=== PATIENT | female | born 1965 | race Caucasian/White ===

== ENCOUNTER 2024-06-05 09:19 | Inpatient (IN) | payer OTHER ==
[2024-06-05] VITALS (9 sets, daily range): BP systolic 99–131; BP diastolic 51–88; PULSE 53–159; RESP 16–20; TEMP 97.8–98.2; O2SAT 94–100
[~2024-06-05] VITALS: Ht 160 cm; Wt 95.7 kg
[2024-06-05] MEDS ORDERED: PROCAINAMIDE HCL INJ 100 MG/ML 10 ML VIAL ONE (09:42)
[2024-06-05] MEDS ORDERED: PROCAINAMIDE HCL INJ 1,000 MG in DEXTROSE 5% 500ML 500 ML IV STA (09:45)
[2024-06-05 10:05] LABS: BASOPHILS % 0.2 % (0.0-1.0); EOSINOPHILS # (AUTO) 0.2 (0.0-0.4); EOSINOPHILS % 1.3 % (0.0-6.0); HEMOGLOBIN 12.6 g/dL (12.0-16.0); LYMPHOCYTES # (AUTO) 5.3 (1.0-3.2); LYMPHOCYTES % 44.7 % (18.0-39.1); MEAN CORPUSCULAR HEMOGLOBIN 27.6 pg (28-32); MEAN CORPUSCULAR HGB CONC 30.7 g/dL (31-35); MEAN CORPUSCULAR VOLUME 89.7 fL (81-99); MONOCYTES # (AUTO) 0.5 (0.2-0.8); MONOCYTES % 4.4 % (4.4-11.3); NEUTROPHILS # (AUTO) 5.8 (2.1-6.9); NEUTROPHILS % 49.1 % (38.7-80.0); PLATELET COUNT 278 x10e3/uL (140-360); RED BLOOD COUNT 4.57 x10e6/uL (3.6-5.1); RED CELL DISTRIBUTION WIDTH 14.3 % (11.7-14.4); WHITE BLOOD COUNT 11.81 x10e3/uL (4.8-10.8)
[2024-06-05 10:37] LABS: ALBUMIN 3.1 g/dL (3.5-5.0); ALBUMIN/GLOBULIN RATIO 0.9 (0.8-2.0); ANION GAP 16.7 mmol/L (8-16); BILIRUBIN,TOTAL 0.2 mg/dL (0.2-1.2); CALCIUM 9.1 mg/dL (8.4-10.2); CREATININE, SERUM 0.94 mg/dL (0.57-1.11); POTASSIUM 3.7 mmol/L (3.5-5.1); TOTAL PROTEIN 6.6 g/dL (6.5-8.1)
[2024-06-05] MEDS ORDERED: SODIUM CHLORIDE 0.9% 1000ML 1,000 ML IV SCH (11:00)
[2024-06-05] MEDS ORDERED: ONDANSETRON HCL INJ 2MG/ML 2ML 2 MG/ML VIAL IV PRN (12:00)
[2024-06-05] MEDS: PROCAINAMIDE HCL IV STA (13:03)
[2024-06-05] MEDS: DEXTROSE 5% IV STA (13:03)
[2024-06-05] MEDS ORDERED: ACETAMINOPHEN 325 MG TAB PO PRN (14:00)
[2024-06-05] MEDS ORDERED: LIDOCAINE 4% PATCH TP PRN (14:00)
[2024-06-05] MEDS ORDERED: DEXTROSE 50% SYRINGE 50 ML IV PRN (14:00)
[2024-06-05] MEDS ORDERED: POTASSIUM CHLORIDE 20 MEQ TAB CR PO PRN (14:00)
[2024-06-05] MEDS ORDERED: ALBUTEROL/IPRATROPIUM 3 ML NEB NEB PRN (14:00)
[2024-06-05] MEDS ORDERED: HYDRALAZINE HCL 20 MG/ML VIAL IV PRN (14:00)
[2024-06-05] MEDS ORDERED: SIMETHICONE 80 MG CHEW PO PRN (14:00)
[2024-06-05] MEDS ORDERED: DOCUSATE SODIUM 100 MG CAP PO PRN (14:00)
[2024-06-05] MEDS ORDERED: DIPHENHYDRAMINE HCL 25 MG CAP PO PRN (14:00)
[2024-06-05] MEDS ORDERED: BENZONATATE 100 MG CAP PO PRN (14:00)
[2024-06-05] MEDS: POTASSIUM CHLORIDE 20 MEQ TAB CR PO STA (16:01)
[2024-06-05] MEDS ORDERED: METOPROLOL SUCC25 MG PO (16:10)
[2024-06-05] MEDS ORDERED: FLECAINIDE ACE100 MG PO (16:10)
[2024-06-05] MEDS: METOPROLOL SUCCINATE 25 MG TAB XL PO SCH (16:40)
[2024-06-05] MEDS: ENOXAPARIN SOD INJ 40 MG/0.4 ML SYR SC SCH (16:40)
[2024-06-05] MEDS ORDERED: ASPIRIN325 MG PO (16:54)
[2024-06-05] MEDS ORDERED: PRAVASTATIN SOD40 MG PO (16:54)
[2024-06-05] MEDS ORDERED: MELATONIN 5 MG TABLET PO PRN (21:00)
[2024-06-06] VITALS (7 sets, daily range): BP systolic 105–127; BP diastolic 49–94; PULSE 51–57; RESP 15–17; TEMP 97.8–98.1; O2SAT 94–99
[2024-06-06 06:47] LABS: BASOPHILS % 0.1 % (0.0-1.0); EOSINOPHILS # (AUTO) 0.1 (0.0-0.4); EOSINOPHILS % 1.5 % (0.0-6.0); HEMATOCRIT 32.9 % (34.2-44.1); HEMOGLOBIN 10.3 g/dL (12.0-16.0); LYMPHOCYTES # (AUTO) 2.7 (1.0-3.2); LYMPHOCYTES % 39.6 % (18.0-39.1); MEAN CORPUSCULAR HEMOGLOBIN 27.1 pg (28-32); MEAN CORPUSCULAR HGB CONC 31.3 g/dL (31-35); MEAN CORPUSCULAR VOLUME 86.6 fL (81-99); MONOCYTES # (AUTO) 0.4 (0.2-0.8); MONOCYTES % 6.6 % (4.4-11.3); NEUTROPHILS # (AUTO) 3.5 (2.1-6.9); NEUTROPHILS % 51.8 % (38.7-80.0); PLATELET COUNT 188 x10e3/uL (140-360); RED CELL DISTRIBUTION WIDTH 14.6 % (11.7-14.4)
[2024-06-06 07:00] LABS: ANION GAP 11.5 mmol/L (8-16); CALCIUM 8.6 mg/dL (8.4-10.2); CREATININE, SERUM 0.78 mg/dL (0.57-1.11); POTASSIUM 3.5 mmol/L (3.5-5.1)
[2024-06-06 07:25] LABS: CHOL/HDL RATIO 4.9 (3.0-3.6); MAGNESIUM 1.7 MG/DL (1.3-2.1)
[2024-06-06 07:46] LABS: THYROID STIMULATING HORMONE 1.502 uIU/mL (0.350-4.940)
[2024-06-06] MEDS: PANTOPRAZOLE SOD 40 MG TABEC PO SCH (08:53)
[2024-06-06] MEDS: MAGNESIUM SULFATE 2GM/50ML 50 ML IV ONE (11:44)
[2024-06-06] MEDS: POTASSIUM CHLORIDE 20 MEQ TAB CR PO STA (11:44)
[2024-06-06] MEDS ORDERED: METOPROLOL SUCC25 MG PO (13:04)
[2024-06-06] MEDS ORDERED: FLECAINIDE ACE100 MG PO (13:04)
== END 2024-06-06 13:30 | disposition home or self-care (01) | DRG 310 ==
LOC: ER 09:28 → ERHOLD 10:52 → ICU 13:47
PROVIDERS: ADMIT Internal Medicine; ATTEND Internal Medicine
DX: I47.20 Ventricular tachycardia, unspecified (principal); I48.92 Unspecified atrial flutter; I48.0 Paroxysmal atrial fibrillation; I10 Essential (primary) hypertension; E66.01 Morbid (severe) obesity due to excess calories; Z68.37 Body mass index [BMI] 37.0-37.9, adult; Z79.899 Other long term (current) drug therapy; Z79.82 Long term (current) use of aspirin
CPT/HCPCS: 36415; 71045; 80048; 80053; 80061; 83735; 84132; 84443; 84484; 85025; 93005; 94799; 99285; J2690; J3475; J7060